=== PATIENT | female | born 2005 | race Caucasian/White ===

== ENCOUNTER 2023-08-15 10:20 | Emergency (ER) | payer OTHER ==
[~2023-08-15] VITALS: Ht 162.6 cm; Wt 68.2 kg
[2023-08-15] MEDS ORDERED: ETON68IM SC (11:40)
[2023-08-15] MEDS ORDERED: ISOVUE-370 76% 100ML VIAL As Ordered ONE (11:43)
[2023-08-15 13:34] VITALS: BP 108/56; TEMP 98.4; O2SAT 100
== END 2023-08-15 13:28 | disposition home or self-care (01) ==
LOC: EDBD 10:20 → M ED 10:20
DX: S39.011A Strain of muscle, fascia and tendon of abdomen, initial encounter (principal); S13.4XXA Sprain of ligaments of cervical spine, initial encounter; V49.9XXA Car occupant (driver) (passenger) injured in unspecified traffic accident, initial encounter; Y92.9 Unspecified place or not applicable
CPT/HCPCS: 36415; 72125; 74177; 80047; 84702; 99284; Q9967